=== PATIENT | male | born 1995 | race Caucasian/White ===

== ENCOUNTER 2018-02-13 07:31 | Outpatient (CLI) | payer OTHER ==
--- NOTE | 2018-02-13 09:41 | ULT ---
ULTRASOUND ABDOMEN COMPLETE: Date: 02/13/18 INDICATION: Palpable abnormality ventral abdominal wall. TECHNIQUE: Preston scale ultrasound evaluation of the liver, gallbladder, spleen, pancreas, common bile duct, kidne ys, abdominal aorta, and inferior vena cava (IVC). FINDINGS: There is asymmetric decreased volume of left kidney, likely chronic. Correlate clinically. There is no acute gallbladder pathology for focal hepatic lesion. Right kidney is unremarkable. Pancr eas is partially obscured from view, which limits assessment. No ascites is seen. Imaged aspects of t he aorta are grossly unremarkable. At site of palpable concern, there is a curvilinear echogenicity focus. This finding is somewhat ill- defined. IMPRESSION: 1. Curvilinear decreased echogenicity focus involving the ventral abdominal wall. This could relate to a small area of hernia. This does not demonstrate the appearance of peristalsing bowel. Findings n ot mass-like in configuration. Recommend correlation with physical exam and, if necessary, continued dedicated imaging follow-up may be obtained. 2. Asymmetric small size of left kidney. Correlate clinically. POS: ANANYA
== END 2018-02-13 07:32 | disposition home or self-care (01) ==
LOC: ULT 07:31
DX: R10.9 Unspecified abdominal pain (principal); N28.89 Other specified disorders of kidney and ureter; R93.3 Abnormal findings on diagnostic imaging of other parts of digestive tract
CPT/HCPCS: 76700

== ENCOUNTER 2020-01-12 19:09 | Emergency (ER) | payer OTHER ==
--- NOTE | 2020-01-15 14:49 | EKG ---
Test Reason : Blood Pressure : / mmHG Vent. Rate : 086 BPM Atrial Rate : 086 BPM P-R Int : 124 ms QRS Dur : 096 ms QT Int : 338 ms P-R-T Axes : 075 059 055 degrees QTc Int : 404 ms Normal sinus rhythm Possible Left atrial enlargement Borderline ECG Confirmed by SHILO GARCIA ([id number]), photo editor SHEFALI MOSELEY ([id number]) on 01/15/2020 2:49:25 PM Referred By: Confirmed By:SHILO GARCIA
== END 2020-01-12 21:07 | disposition left against medical advice (07) ==
LOC: ERS 19:09
DX: Z53.21 Procedure and treatment not carried out due to patient leaving prior to being seen by health care provider (principal)
CPT/HCPCS: 93005

== ENCOUNTER 2020-03-24 17:06 | Emergency (ER) | payer OTHER ==
[2020-03-24 18:30] LABS: #Eosinphils 0.1 thou/uL (0.0-0.7); #Lymphocytes 1.6 thou/uL (1.20-3.40); #Monocytes 0.4 thou/uL (0.11-0.59); #Neutrophils 3.2 thou/uL (1.40-6.50); %Basophils 0.5 % (0.0-1.0); %Eosinophils 2.2 % (0.0-10.0); %Lymphocytes 29.5 % (21.0-51.0); %Neutrophils 59.7 % (42.0-75.0); Hemoglobin 16.9 g/dL (14.0-18.0); Mean Corpuscular HGB CONC 33.8 g/dL (32.0-36.0); Mean Corpuscular Hemoglobin 30.2 pg (27.0-31.0); Mean Corpuscular Volume 89.5 fL (78.0-98.0); Mean Platelet Volume 7.2 fL (7.4-10.4); Platelet Count 183 thou/uL (130-400); RBC Distribution Width 11.5 % (11.5-14.5); White Blood Cell (WBC) Count 5.3 thou/uL (4.8-10.8)
[2020-03-24 18:50] LABS: ALT (SGPT) 18 U/L (8-55); AST (SGOT) 16 U/L (5-34); Albumin 4.6 g/dL (3.5-5.0); Alkaline Phosphatase 79 U/L (40-110); Anion Gap 13 mmol/L (10-20); BUN (Urea Nitrogen) 8 mg/dL (8.9-20.6); Bilirubin, Total 0.6 mg/dL (0.2-1.2); Calc. Creatinine Clearance 0 mL/min (70-130); Calcium 9.4 mg/dL (7.8-10.44); Carbon Dioxide 28 mmol/L (22-29); Chloride 103 mmol/L (98-107); Estimated GFR-MDRD Greater than 90; Globulin 2.3 g/dL (2.4-3.5); Glucose 83 mg/dL (70-105); Potassium 3.6 mmol/L (3.5-5.1); Protein, Total 6.9 g/dL (6.0-8.3); Sodium 140 mmol/L (136-145)
--- NOTE | 2020-03-24 20:15 | CT ---
CT OF THE BRAIN WITHOUT CONTRAST: 03/24/20 HISTORY: Patient woke up with sharp pain in the head and vision changes. TECHNIQUE: Multiple contiguous axial images were obtained in a CT of the brain without contrast. FINDINGS: A cavum septum pellucidum is incidentally seen. The brain is normal in morphology and attenuation wit hout focal lesions or confluent areas of infarction. There is no evidence of hydrocephalus, intracran ial hemorrhage or extra-axial fluid collection. The calvarium and overlying soft tissues are unremarkable. The visualized paranasal sinuses and masto id air cells are well aerated. IMPRESSION: No evidence of acute intracranial abnormality. POS: EAA
--- NOTE | 2020-03-29 16:09 | EKG ---
Test Reason : Blood Pressure : / mmHG Vent. Rate : 066 BPM Atrial Rate : 066 BPM P-R Int : 114 ms QRS Dur : 094 ms QT Int : 380 ms P-R-T Axes : 042 048 048 degrees QTc Int : 398 ms Normal sinus rhythm with sinus arrhythmia Normal ECG Confirmed by GIANNA MCPHERSON DO ([id number]), news assignment editor HELEN MARTINEZ ([id number]) on 03/29/2020 4:09:05 PM Referred By: Confirmed By:GIANNA MCPHERSON DO
== END 2020-03-24 19:20 | disposition home or self-care (01) ==
LOC: ERS 17:06
DX: R25.1 Tremor, unspecified (principal); H53.9 Unspecified visual disturbance; R40.0 Somnolence; J45.909 Unspecified asthma, uncomplicated; I10 Essential (primary) hypertension; F41.9 Anxiety disorder, unspecified; F32.9 Major depressive disorder, single episode, unspecified; F17.290 Nicotine dependence, other tobacco product, uncomplicated; Z79.899 Other long term (current) drug therapy
CPT/HCPCS: 36415; 70450; 80053; 85025; 93005

== ENCOUNTER 2022-10-18 18:40 | Emergency (ER) | payer BC, OTHER ==
[2022-10-18] MEDS ORDERED: Rabies Vaccine Human 2.5 UNITS VIAL ONE (19:22)
== END 2022-10-18 20:57 | disposition home or self-care (01) ==
LOC: ERS 18:40
DX: S61.250A Open bite of right index finger without damage to nail, initial encounter (principal); W55.51XA Bitten by raccoon, initial encounter
CPT/HCPCS: 90375; 90471; 90675; 96372